=== PATIENT | female | born 1955 | race Caucasian/White ===

== ENCOUNTER 2017-12-03 18:08 | Emergency (ER) | payer OTHER ==
[~2017-12-03 18:08] MED LIST: ASPI-1197 PO; BIOT25008 PO; CALC-910 PO; CETI10CA5 PO; DOXY100C2 PO; ESTR0.5T PO; IRON PO; KRIL1CAP19 PO; LEVO75TA6 PO; MENT118G TP; MOME17N NS; MULT-950 PO; NAPR-1023 PO; RIZA10TA27 PO
[2017-12-03] MEDS ORDERED: IBUPROFEN 600 MG TABLET ONE (18:25)
== END 2017-12-03 18:51 | disposition home or self-care (01) ==
LOC: EDH 18:08
DX: S93.401A Sprain of unspecified ligament of right ankle, initial encounter (principal); E78.5 Hyperlipidemia, unspecified; E07.9 Disorder of thyroid, unspecified; Z88.0 Allergy status to penicillin; Z95.0 Presence of cardiac pacemaker; Z90.710 Acquired absence of both cervix and uterus; X58.XXXA Exposure to other specified factors, initial encounter; Y93.89 Activity, other specified; Y92.481 Parking lot as the place of occurrence of the external cause; Y99.8 Other external cause status
CPT/HCPCS: 73610

== ENCOUNTER → 2019-01-29 | Outpatient (CLI) | payer OTHER | END | disposition home or self-care (01) | LOC: RAH 15:13 | PROVIDERS: ATTEND Internal Medicine | DX: Z12.31 Encounter for screening mammogram for malignant neoplasm of breast (principal) | CPT/HCPCS: 77067 ==

== ENCOUNTER → 2020-06-27 | Outpatient (CLI) | payer OTHER | END | disposition home or self-care (01) | LOC: RAH 09:51 | PROVIDERS: ATTEND Internal Medicine | DX: Z12.31 Encounter for screening mammogram for malignant neoplasm of breast (principal); N64.89 Other specified disorders of breast | CPT/HCPCS: 77067 ==

== ENCOUNTER → 2022-08-10 | Outpatient (CLI) | payer MEDICARE ==
[~2022-08-10] MED LIST changes: -DOXY100C2 PO; +DOXY100C5 PO; -MOME17N NS; +MOME17SP4 NS; +RIZA-5 PO; -RIZA10TA27 PO
== END | disposition home or self-care (01) ==
LOC: RAH 11:28
PROVIDERS: ATTEND Internal Medicine
DX: Z12.31 Encounter for screening mammogram for malignant neoplasm of breast (principal)
CPT/HCPCS: 77067

== ENCOUNTER → 2023-08-25 | Outpatient (CLI) | payer MEDICARE ==
[~2023-08-25] MED LIST changes: -ESTR0.5T PO; +ESTR0.5T2 PO
== END | disposition home or self-care (01) ==
LOC: RAH 13:15
PROVIDERS: ATTEND Internal Medicine
DX: Z12.31 Encounter for screening mammogram for malignant neoplasm of breast (principal)
CPT/HCPCS: 77067

== ENCOUNTER → 2024-09-27 | Outpatient (CLI) | payer MEDICARE ==
[~2024-09-27] MED LIST changes: -NAPR-1023 PO; +NAPR-1194 PO
--- NOTE | 2024-09-30 13:34 | HMCSR ---
APPROVED REPORT EXAM: Two-dimensional and M-mode echocardiogram with Doppler and color Doppler. INDICATION ICD: I49.5 Sick sinus syndrome Dyspnea Abnormal ECG 2D Dimensions RVDd3.1 cmLVEF(%)48.8 (>50%)LVED Vol(simp.)72.0 mL IVSd0.8 (0.7-1.1cm)FS(%)25 %LVES Vol(simp.)39.0 mL LVDd4.5 (3.8-5.6cm)Ao Root(2D)3.0 (2.0-3.7cm)LVEF(%, simp.)45 % PWd0.8 (0.7-1.1cm)LVOT diam1.9 (1.8-2.4cm)LA ESV INDEX (BP)16.75 mL/m2 LVDs3.4 (2.5-4.0cm)IVC diam1.4 cm Aortic Valve AoV Vmax1.1 m/Arsenio Peak GR4.6 mmHgLVOT Vmax0.7 m/s AoV VTI0.2 mAo Mean GR2.6 mmHgLVOT VTI0.13 m LAUREN (VMAX)1.9 cm2AVA (VTI) 1.9 cm2 Mitral Valve MV E Vmax45.5 cm/sDECEL Vfyr762 ms MV A Vmax66.5 cm/sP 1/2 T81 ms E/A ratio0.7MVA (PHT)2.7 cm2 TDI E/E' Mrpxhz35.7E/E' Lateral6.8 Pulmonary Valve PV Vmax0.7 m/sPV VTI0.17 mPV Mean GR1 mmHg PV Peak GR2.2 mmHgPI End Carina. Jorge 0.9 cm/s Tricuspid Valve TR Vmax1.9 m/sRAP (EST) 3 hfZkPHDL35.0 mmHg TR Peak GR15.0 mmHg Left Ventricle The left ventricle structure and function is normal. There is normal LV segmental wall motion. There is normal left ventricular wall thickness. LVEF is 55-60%. Grade 1 diastolic dysfunction Right Ventricle The right ventricle is normal size. The right ventricular systolic function is normal. Pacer lead not ed Atria The left atrium size is normal. The right atrium size is normal. Aortic Valve Aortic valve is trileaflet. Trace aortic regurgitation. Calculated aortic valve area is 1.9 cm2 with maximum pressure gradient of 4.6 mmHg and mean pressure gradient of 2.6 mmHg. Mitral Valve The mitral valve is mildly thickened. Mitral regurgitation is trace. There is no mitral valve stenosi s. Tricuspid Valve The tricuspid valve leaflets appear normal. There is trace tricuspid regurgitation. Pulmonic Valve The pulmonic valve leaflets are thin and pliable; valve motion is normal. There is trace to mild valv ular regurgitation. Great Vessels The aortic root is normal in size. The IVC is normal in size and collapses >50% with inspiration. Pericardium No pericardial effusion. Conclusion The aortic root is normal in size. No pericardial effusion.
== END | disposition home or self-care (01) ==
LOC: SHCH 13:43
PROVIDERS: ATTEND Internal Medicine Cardiovascular Disease
DX: I08.8 Other rheumatic multiple valve diseases (principal); R06.09 Other forms of dyspnea; R94.31 Abnormal electrocardiogram [ECG] [EKG]; I49.5 Sick sinus syndrome
CPT/HCPCS: 93306